=== PATIENT | female | born 1985 | race Asian ===

== ENCOUNTER 2018-11-26 16:00 | Inpatient (IN) | payer BC ==
[~2018-11-26] VITALS: Ht 162.6 cm; Wt 76.0 kg
[2018-11-28 08:00] VITALS: BP 95/66
== END 2018-11-28 16:00 | disposition home or self-care (01) | DRG 807 ==
LOC: LDOP 16:00 → LDIP 17:00 → UNDOADMIN 17:16 → LDIP 17:16 → 2NW 11-27 03:45
PROVIDERS: ADMIT Obstetrics & Gynecology; ATTEND Obstetrics & Gynecology
PROC: 10E0XZZ Delivery of Products of Conception, External Approach (ICD-10-PCS; principal; 2018-11-27)
PROC: 0KQM0ZZ Repair Perineum Muscle, Open Approach (ICD-10-PCS; 2018-11-27)
PROC: 3E0R3BZ Introduction of Anesthetic Agent into Spinal Canal, Percutaneous Approach (ICD-10-PCS; 2018-11-27)
PROC: 00HU33Z Insertion of Infusion Device into Spinal Canal, Percutaneous Approach (ICD-10-PCS; 2018-11-27)
DX: O69.81X0 Labor and delivery complicated by cord around neck, without compression, not applicable or unspecified (principal); Z37.0 Single live birth; Z3A.39 39 weeks gestation of pregnancy; O70.1 Second degree perineal laceration during delivery
CPT/HCPCS: 36415; S0020; 85025; 86850; 86900; G0378; J3010; J2590; J7050; J7120